=== PATIENT | female | born 1970 | race Caucasian/White ===

== ENCOUNTER 2018-10-11 15:45 | Emergency (ER) | payer OTHER ==
[2018-10-11 11:12] LABS: BASOPHILS % (AUTO) 0 % (0-3); EOSINOPHILS % (AUTO) 1 % (0-9); HEMATOCRIT 28 % (35-47); HEMOGLOBIN 8.7 gm/dl (12.0-15.5); LYMPHOCYTES % (AUTO) 9.8 % (10-50); MEAN CORPUSCULAR HEMOGLOBIN 26.8 pg (27.0-32.0); MEAN CORPUSCULAR HGB CONC 30.6 gm/dl (32.0-36.0); MEAN CORPUSCULAR VOLUME 88 fL (81-99); MONOCYTES % (AUTO) 6.2 % (0-12); NEUTROPHILS % (AUTO) 82.8 % (37-80)
[2018-10-11 11:19] LABS: CARBON DIOXIDE 29.9 mEq/L (21-32); CREATININE 1.11 mg/dl (0.60-1.00); POTASSIUM 3.1 mMol/L (3.5-5.1)
[2018-10-11 16:01] VITALS: TEMP 97.6
[2018-10-11] MEDS ORDERED: POTASSIUM CHLORIDE 2 MEQ/ML SOL IV ONE (16:39)
[2018-10-11] MEDS ORDERED: MAGNESIUM OXIDE 400 MG TAB PO SCH (16:45)
[2018-10-11] MEDS ORDERED: SODIUM CHLORIDE/KCL 20MEQ 1,000 ML IV SCH ×2 (16:45→17:30)
[2018-10-11] MEDS ORDERED: MAGNESIUM OXIDE 400 MG TAB ONE (16:52)
[2018-10-11 19:01] LABS: CALCIUM 8.1 mg/dl (8.5-10.1); CARBON DIOXIDE 27.7 mEq/L (21-32); CREATININE 1.24 mg/dl (0.60-1.00); MAGNESIUM 1.1 mg/dl (1.8-2.4); POTASSIUM 3.3 mMol/L (3.5-5.1)
[2018-10-11 20:54] VITALS: BP 151/92; PULSE 72; RESP 13; O2SAT 91
== END 2018-10-11 20:47 | disposition home or self-care (01) | DRG 869 ==
LOC: ED 15:45
DX: B39.9 Histoplasmosis, unspecified (principal); E87.6 Hypokalemia; E83.42 Hypomagnesemia
CPT/HCPCS: 36415; 36591; 80048; 83735; 93005; 96365; 96366; 99284; 99285; J0289; J3480; A9270-GY

== ENCOUNTER 2018-10-12 17:30 | Observation (INO) | payer OTHER ==
[2018-10-13 08:16] VITALS: O2SAT 88
[2018-10-13] MEDS ORDERED: POTASSIUM CHLORIDE 2 MEQ/ML SOL IV SCH (08:50)
[2018-10-13] MEDS ORDERED: ACETAMINOPHEN 325 MG PO SCH (08:50)
[2018-10-13] MEDS ORDERED: ONDANSETRON HCL 4 MG/2 ML SOL ONE (08:53)
[2018-10-13] MEDS ORDERED: ONDANSETRON HCL 4 MG/2 ML SOL IV PRN (08:55)
[2018-10-13] MEDS ORDERED: HYDROMORPHONE 1 MG/ML SYRINGE IV STA (09:03)
[2018-10-13 09:36] VITALS: BP 129/76; PULSE 73; RESP 18; TEMP 98.2
== END 2018-10-13 09:45 | disposition short-term general hospital (02) | DRG 547 ==
LOC: ACUTE CARE 17:30
PROVIDERS: ADMIT Family Medicine; ATTEND Family Medicine
DX: M33.10 Other dermatomyositis, organ involvement unspecified (principal); E87.6 Hypokalemia; E83.42 Hypomagnesemia; R11.2 Nausea with vomiting, unspecified; R19.7 Diarrhea, unspecified
CPT/HCPCS: 93012; J2405; J1170